=== PATIENT | male | born 1975 | race Caucasian/White ===

== ENCOUNTER 2017-02-08 02:58 | Emergency (ER) | payer SELFPAY ==
[2017-02-08 03:06] VITALS: BP 133/86
--- NOTE | 2017-02-08 03:18 | EDM.PDOC ---
ED HPI GENERAL MEDICAL PROBLEM - General Chief Complaint: Eye Problems Stated Complaint: INJURY TO RIGHT EYE Time Seen by Provider: 02/08/17 03:11 - History of Present Illness INITIAL COMMENTS - FREE TEXT/NARRATIVE: 41-year-old male presents emergency room with something in his right eye. He thinks this occurred Monday night while he was grinding some metal. However he didn't start getting uncomfortable until sometime that evening. He was also using some power tools at home that evening putting up a shower ronny. His last tetanus shot was about 7 years ago. Right Eye Pain Score (Numeric/FACES): 5 - Related Data Allergies Allergy/AdvReac Type Severity Reaction Status Date / Time No Known Allergies Allergy Verified 02/08/17 03:03 Home Meds: Home Meds . [No Known Home Meds] 02/08/17 [History] Social & Family History - Tobacco Use Smoking Status *Q: Current Every Day Smoker Years of Tobacco use: 20 Packs/Tins Daily: 1 Used Tobacco, but Quit: No Second Hand Smoke Exposure: No - Caffeine Use Caffeine Use: Reports: Energy Drinks - Recreational Drug Use Recreational Drug Use: No ED ROS GENERAL - Review of Systems Review Of Systems: See Below Constitutional: Reports: No Symptoms Respiratory: Reports: No Symptoms Cardiovascular: Reports: No Symptoms GI/Abdominal: Reports: No Symptoms ED EXAM GENERAL W FULL EYE - Physical Exam Exam: See Below Exam Limited By: No Limitations General Appearance: Alert, No Apparent Distress Eye Exam: Right Eye: Conjunctival Injection, Foreign Body, Bilateral Eye: EOMI, PERRL Visual Acuity (R) 20/: 50 Visual Acuity (L) 20/: 40 With Correction: Yes Eyelids: Bilateral: Normal Appearance Conjunctiva & Sclera: Bilateral: Normal Appearance Cornea Exam: Right: Foreign Body (Medial to the pupil in the cornea he has swelling second metallic foreign body with a developing rust ring), Examined with Flourescein, Left: Normal Appearance Extraocular Movements: Bilateral: Intact Pupils: Normal Accommodation Anterior Chamber: Bilateral: Normal Appearance Posterior Chamber: Right: Normal Funduscopic Respiratory/Chest: No Respiratory Distress, Lungs Clear, Normal Breath Sounds Cardiovascular: Regular Rate, Rhythm, No Murmur, No Rub ED EYE w/ Add Procedure - Eye Procedure Alcaine Drops Administered: No (Proparacaine used) Progress: Proparacaine was instilled to the right eye several drops right eye was examined no loose foreign bodies identified a metallic located in foreign body was seen medial to the pupil. Floor is seen was instilled using a slit lamp with cold while filters uptake of the floor seen was seen at the foreign body no other corneal abrasions noted. Using a ice but the foreign body was removed however a large rust ring remained the rust ring was treated with a rotary bur with significant removal of most of the rust ring I cannot be certain it is completely gone it was getting pretty deep. All instrumentation done to remove the foreign body and rust ring was done with visual assistance with the slit lamp. Patient's eye was treated with erythromycin ointment and he was given a Forreston he agrees to follow-up with an eye doctor later today. Course - Vital Signs Last Recorded V/S: Last Vital Signs Temp 36.4 C 02/08/17 03:03 Pulse 84 02/08/17 03:03 Resp 18 02/08/17 03:03 BP 133/86 02/08/17 03:03 Pulse Ox 95 02/08/17 03:03 - Orders/Labs/Meds Meds: Medications Discontinued Medications Generic Name Dose Route Start Last Admin Trade Name Rejiq PRN Reason Stop Dose Admin Hydrocodone Bitart/Acetaminophen 1 tab 02/08/17 04:02 Forreston 325-5 Mg PO 02/08/17 04:03 ONETIME ONE Erythromycin 1 gm 02/08/17 04:02 Erythromycin 0.5% Ophth Oint EYEBOTH 02/08/17 04:03 ONETIME ONE Fluorescein Sodium/Benoxinate HCl 0.1 ml 02/08/17 03:19 02/08/17 03:24 Fluress Ophth Soln EYERT 02/08/17 03:20 1 drop ONETIME ONE Administration Proparacaine HCl 0.1 ml 02/08/17 03:19 02/08/17 03:24 Proparacaine 0.5% Ophth Soln EYERT 02/08/17 03:20 1 drop ONETIME ONE Administration - Re-Assessments/Exams Free Text/Narrative Re-Assessment/Exam: 02/08/17 04:16 The patient is given Forreston No. 20 from the machine in the waiting room 5/325 one or 2 every 4-6 hours as needed for pain. Departure - Departure Time of Disposition: 04:16 Disposition: Home, Self-Care 01 Clinical Impression: Foreign body of right eye, Corneal rust ring of right eye - Discharge Information Forms: ED Department Discharge Additional Instructions: Return to the emergency room with any questions problems or worsening symptoms. Use erythromycin ointment approximately a third of an inch every couple hours while awake to the right eye. You been given Forreston, or hydrocodone the machine in the waiting room. Take one or 2 every 4-6 hours as needed for pain. Allow 12 hours after using this medication before driving or returning to work. Later today follow-up with an eye doctor for reevaluation and further removal of any rust that might be remaining.
[2017-02-08] MEDS ORDERED: Benoxinate/Fluorescein 0.4-0.25% Ophth Soln 5 ML Bottle EYERT ONE (03:19)
[2017-02-08] MEDS ORDERED: Proparacaine 0.5% Ophth Soln 15 ML Bottle EYERT ONE (03:19)
[2017-02-08] MEDS ORDERED: Acetaminophen/HYDROcodone 325-5 MG Tab PO ONE (04:02)
[2017-02-08] MEDS ORDERED: Erythromycin Base 0.5% Ophth Oint 1 GM Tube EYEBOTH ONE (04:02)
== END 2017-02-08 04:31 | disposition home or self-care (01) ==
LOC: JD.ED 02:58
DX: T15.01XA Foreign body in cornea, right eye, initial encounter (principal); F17.210 Nicotine dependence, cigarettes, uncomplicated; X58.XXXA Exposure to other specified factors, initial encounter
CPT/HCPCS: 65222; 99283; A9270

== ENCOUNTER 2019-10-19 21:49 | Emergency (ER) | payer SELFPAY ==
[2019-10-19 22:05] VITALS: BP 140/90; PULSE 74
[2019-10-19] MEDS ORDERED: HYDROmorphone 1 MG/ML Syringe IM ONE (22:11)
--- NOTE | 2019-10-19 22:21 | EDM.PDOC ---
ED HPI GENERAL MEDICAL PROBLEM - General Chief Complaint: ENT Problem Stated Complaint: TOOTHACHE Time Seen by Provider: 10/19/19 21:57 Source of Information: Reports: Patient, RN Notes Reviewed History Limitations: Reports: No Limitations - History of Present Illness INITIAL COMMENTS - FREE TEXT/NARRATIVE: Patient is a 44-year-old male who presents to the ED for the evaluation of his dental complaint. Patient notes that he has been having issues with a tooth on the right upper jaw for a few days, but today it did worsen. He states that he tried taking 800 mg Advil for pain relief at around 8 PM, and this did not seem to provide much relief at all. Patient states he does not normally go to a dentist, but does not usually have dental issues. Patient states that the pain does radiate up into his face and ear. He has not had any fevers or chills, no nausea/vomiting/diarrhea, sore throat, and states that swishing cold water on it makes it feel better. Patient denies any other sick-like symptoms. Patient states he is not really been able to eat much due to the pain as well. Right Tooth/Teeth Pain Score (Numeric/FACES): 10 - Related Data Allergies Allergy/AdvReac Type Severity Reaction Status Date / Time No Known Allergies Allergy Verified 10/19/19 22:05 Home Meds: Home Meds Dextroamphetamine/Amphetamine [Dextroamp-Amphet ER 20 mg Cap] 20 mg PO ASDIRECTED 10/19/19 [History] Past Medical History HEENT History: Reports: Impaired Vision Other HEENT History: wears corrective lenses - Past Surgical History HEENT Surgical History: Reports: None Respiratory Surgical History: Reports: Thoracotomy Social & Family History - Tobacco Use Smoking Status *Q: Current Every Day Smoker Years of Tobacco use: 20 Packs/Tins Daily: 1 - Caffeine Use Caffeine Use: Reports: Coffee - Recreational Drug Use Recreational Drug Use: No ED ROS ENT - Review of Systems Review Of Systems: Comprehensive ROS is negative, except as noted in HPI. ED EXAM, ENT - Physical Exam Exam: See Below Exam Limited By: No Limitations General Appearance: Alert, WD/WN, No Apparent Distress Eye Exam: Bilateral Eye: EOMI, Normal Inspection, PERRL Ears: Normal External Exam, Normal Canal, Hearing Grossly Normal, Normal TMs Nose: Normal Inspection Mouth/Throat: Normal Inspection, Normal Lips, Normal Oropharynx, Dental Pain, Other (dentition in poor repair, multiple cavities noted, there does appear to be a cavity on the side he is having the pain, but there is also some erythema at the gumline as well.) Head: Atraumatic, Normocephalic Neck: Normal Inspection, Supple, Non-Tender, Full Range of Motion Respiratory/Chest: No Respiratory Distress, Lungs Clear, Normal Breath Sounds, No Accessory Muscle Use, Chest Non-Tender Cardiovascular: Normal Peripheral Pulses, Regular Rate, Rhythm, No Murmur Extremities: Normal Inspection, Normal Capillary Refill Neurological: Alert, Oriented, Normal Cognition, No Motor/Sensory Deficits Psychiatric: Normal Affect, Normal Mood Skin: Warm, Dry, Intact, Normal Color, No Rash Course - Vital Signs Last Recorded V/S: Last Vital Signs Temp 97.8 F 10/19/19 22:02 Pulse 74 10/19/19 22:02 Resp 16 10/19/19 22:02 BP 140/90 10/19/19 22:02 Pulse Ox 98 10/19/19 22:02 - Orders/Labs/Meds Meds: Medications Discontinued Medications Generic Name Dose Route Start Last Admin Trade Name Freq PRN Reason Stop Dose Admin Hydromorphone HCl 1 mg 10/19/19 22:11 Dilaudid IM 10/19/19 22:12 ONETIME ONE - Re-Assessments/Exams Free Text/Narrative Re-Assessment/Exam: 10/19/19 22:19 Patient presents to the ED for his dental complaint. I did order 1 mg Dilaudid for pain management, and patient will be given a prescription for Augmentin, and some tablets of Percocet out of the [facility] machine. Departure - Departure Time of Disposition: 22:19 Disposition: Home, Self-Care 01 Condition: Good Clinical Impression: Dental caries - Discharge Information *PRESCRIPTION DRUG MONITORING PROGRAM REVIEWED*: Yes *COPY OF PRESCRIPTION DRUG MONITORING REPORT IN PATIENT LUDMILA: No Instructions: Diet and Dental Disease Referrals: Emiliano Chavez PA-C [Primary Care Provider] - Additional Instructions: You have been evaluated in the ED for your dental pain. You have been provided with a script for Augmentin. Please take this medication as directed. (1 tab twice daily for 7 days or until gone). Due to using the [employer] machine, you will have a few extra tablets of this medication left over, please discard these. This antibiotic can cause diarrhea, recommend that you start a probiotic while taking this medication. Aleve provides good pain relief for dental pain. Please take 1-2 tabs twice daily as needed for pain. You were given a prescription for a strong pain medication, oxycodone/acetaminophen 5-325, please take 1 tab every 6 hours as needed for pain not relieved by Aleve alone. These medications can be addictive , so please take as few as possible to achieve adequate pain control. These meds can also be quite constipating, recommend that you increase your oral fluid intake and take a stool softener like MiraLAX while taking these medications. Do not drive while taking this medication. You may use hot pack/ ice packs to the affected area as tolerated in 15-20 minute intervals. You will ultimately need to find a dentist to provide definitive management of your dental pain. The [facility] in [place], [place], , is a clinic that has been known to take people that do not have dental insurance, and may provide payment plans. You might want to check with this provider, regarding your dental pain. Please return to the ED if your symptoms change or worsen. Sepsis Event Note - Evaluation Sepsis Screening Result: No Definite Risk - Focused Exam Vital Signs: Vital Signs Temp Pulse Resp BP Pulse Ox 10/19/19 22:02 97.8 F 74 16 140/90 98 Date Exam was Performed: 10/19/19 Time Exam was Performed: 22:16
== END 2019-10-19 22:50 | disposition home or self-care (01) ==
LOC: JD.ED 21:49
DX: K02.9 Dental caries, unspecified (principal); F17.210 Nicotine dependence, cigarettes, uncomplicated
CPT/HCPCS: 96372; 99282; J1170; 99283

== ENCOUNTER 2019-10-20 04:50 | Emergency (ER) | payer SELFPAY ==
[2019-10-20 05:07] VITALS: BP 170/95; PULSE 62
[2019-10-20] MEDS ORDERED: cefTRIAXone 1 GM, Lidocaine 1% 2.1 ML IM SCH ×2 (05:30)
--- NOTE | 2019-10-20 05:36 | EDM.PDOC ---
ED HPI GENERAL MEDICAL PROBLEM - General Chief Complaint: ENT Problem Stated Complaint: TOOTHACHE Time Seen by Provider: 10/20/19 05:14 Source of Information: Reports: Patient History Limitations: Reports: No Limitations - History of Present Illness INITIAL COMMENTS - FREE TEXT/NARRATIVE: This is a 44-year-old male. He was seen here last night for a right upper tooth infection and pain and placed on Augmentin and given a [facility] prescription for some Percocet. He comes back this morning stating that tooth is hurting badly and the only thing that seems to help his cold water that he holds in his mouth. Any swelling to his face. He denies any fever or chills. He has had no recent colds coughs shortness of breath. Right Oral/Mouth Pain Score (Numeric/FACES): 10 - Related Data Allergies Allergy/AdvReac Type Severity Reaction Status Date / Time No Known Allergies Allergy Verified 10/20/19 05:07 Home Meds: Home Meds Dextroamphetamine/Amphetamine [Dextroamp-Amphet ER 20 mg Cap] 20 mg PO ASDIRECTED 10/19/19 [History] Past Medical History HEENT History: Reports: Impaired Vision Other HEENT History: wears corrective lenses - Past Surgical History HEENT Surgical History: Reports: None Respiratory Surgical History: Reports: Thoracotomy Social & Family History - Tobacco Use Smoking Status *Q: Current Every Day Smoker Years of Tobacco use: 20 Packs/Tins Daily: 1 - Caffeine Use Caffeine Use: Reports: Coffee - Recreational Drug Use Recreational Drug Use: No ED ROS ENT - Review of Systems Review Of Systems: See Below Constitutional: Denies: Fever, Chills HEENT: Reports: Dental Pain Respiratory: Reports: No Symptoms Cardiovascular: Reports: No Symptoms Endocrine: Reports: No Symptoms GI/Abdominal: Reports: No Symptoms : Reports: No Symptoms Musculoskeletal: Reports: No Symptoms Skin: Reports: No Symptoms Neurological: Reports: No Symptoms Psychiatric: Reports: No Symptoms Hematologic/Lymphatic: Reports: No Symptoms ED EXAM, ENT - Physical Exam Exam: See Below Exam Limited By: No Limitations General Appearance: Alert, WD/WN, Mild Distress Eye Exam: Bilateral Eye: Normal Inspection Ears: Normal External Exam Nose: Normal Inspection Mouth/Throat: Other (Dental caries is noted with some repair. The right upper jaw area has a tooth with a dental repair but I do not see any obvious drainage there is no obvious swelling of the gums or redness noted and he does not have any facial swelling) Head: Normocephalic Neck: Supple Respiratory/Chest: No Respiratory Distress Back: Full Range of Motion Extremities: Normal Inspection, Normal Range of Motion Neurological: Alert, Oriented Psychiatric: Normal Affect, Normal Mood Skin: Warm, Dry Course - Vital Signs Last Recorded V/S: Last Vital Signs Temp 97.3 F 10/20/19 05:04 Pulse 62 10/20/19 05:04 Resp 16 10/20/19 05:04 BP 170/95 H 10/20/19 05:04 Pulse Ox 96 10/20/19 05:04 - Orders/Labs/Meds Orders: Active Orders 24 hr Category Date Time Status cefTRIAXone [Rocephin] 1 gm Med 10/20/19 05:30 Active Lidocaine 1% [Xylocaine 1%] 2.1 ml IM Q24H Medication Orders Ceftriaxone Sodium 1 gm/ (Lidocaine HCl 2.1 ml) 0 gm IM Q24H MONA Last Admin: 10/20/19 05:43 Dose: 1 inj Meds: Medications Generic Name Dose Route Start Last Admin Trade Name Rejiq PRN Reason Stop Dose Admin Ceftriaxone Sodium 1 gm/ 0 gm 10/20/19 05:30 10/20/19 05:43 Lidocaine HCl 2.1 ml IM 1 inj Q24H MONA Administration - Re-Assessments/Exams Free Text/Narrative Re-Assessment/Exam: 10/20/19 05:44 Gave the patient handout about using clove oil, garlic, peppermint and hydrogen peroxide to help with the tooth pain. Departure - Departure Time of Disposition: 05:30 Disposition: Home, Self-Care 01 Condition: Fair Clinical Impression: Pain, dental, Dental infection - Discharge Information Instructions: Dental Abscess, [id number] Referrals: Emiliano Chavez PA-C [Primary Care Provider] - Forms: ED Department Discharge Additional Instructions: Go to [facility] this morning and get some putty called " Cap It" that covers the nerve so as not exposed to air causing pain. Continue with your antibiotics as they were prescribed last night, you might consider getting some peppermint tea bags getting them wet and then holding them up against that tooth as you are gently closing your jaw it will help prevent the area getting to the nerve and the peppermint seems to help a lot of people with the tooth pain, salt water rinse and hydrogen peroxide rinse can also help but make sure you dilute hydrogen peroxide with 50% water 50% hydrogen peroxide and DO NOT swallow, Monday call the [facility] in [place] [phone] they will take people that do not have insurance, turn to the ER as needed Sepsis Event Note - Evaluation Sepsis Screening Result: No Definite Risk - Focused Exam Vital Signs: Vital Signs Temp Pulse Resp BP Pulse Ox 10/20/19 05:04 97.3 F 62 16 170/95 H 96 Date Exam was Performed: 10/20/19 Time Exam was Performed: 05:44 - My Orders Last 24 Hours: My Active Orders 10/20/19 05:30 cefTRIAXone [Rocephin] 1 gm Lidocaine 1% [Xylocaine 1%] 2.1 ml IM Q24H - Assessment/Plan Last 24 Hours: My Active Orders 10/20/19 05:30 cefTRIAXone [Rocephin] 1 gm Lidocaine 1% [Xylocaine 1%] 2.1 ml IM Q24H
== END 2019-10-20 05:46 | disposition home or self-care (01) ==
LOC: JD.ED 04:50
DX: K04.7 Periapical abscess without sinus (principal); F17.210 Nicotine dependence, cigarettes, uncomplicated
CPT/HCPCS: 96372; 99282; J0696; J2001; 99283